=== PATIENT | female | born 1990 | race Caucasian/White ===

== ENCOUNTER 2017-10-10 16:02 | Inpatient (IN) ==
[2017-10-10 16:01] VITALS: BMI 32.2
[2017-10-10] MEDS ORDERED: NUBAIN INJ 200 MG VIAL MULTIDOSE IVP PRN (16:03)
[2017-10-10] MEDS ORDERED: D5LR 1L W PITOCIN 10 UNITS/L 10 UNITS/1,000 ML BAG IV PRN (16:03)
[2017-10-10] MEDS ORDERED: PHENERGAN INJ 25 MG IV PRN ×2 (16:03→19:46)
[2017-10-10] MEDS ORDERED: REGLAN INJ 10 MG VIAL IVP PRN (16:03)
[2017-10-10] MEDS ORDERED: PITOCIN IVP ONE (16:03)
[2017-10-10] MEDS ORDERED: D5 1/2 NS 1000 ML 1,000 ML IV SCH (16:03)
[2017-10-10] MEDS ORDERED: D5 1/2 NS 1000 ML 1,000 ML IV ONE (16:22)
[2017-10-10] MEDS ORDERED: D5LR 1L W PITOCIN 10 UNITS/L 10 UNITS/1,000 ML BAG IV ONE (16:37)
[2017-10-10] MEDS ORDERED: PITOCIN ONE (16:37)
[2017-10-10] MEDS ORDERED: D5 1/2 NS 1L W PITOCIN 20 UNITS/L 20 UNITS/1,000 ML BAG IV ONE (16:38)
[2017-10-10 16:43] LABS: AMNISURE ROM TEST THERE IS A RUPTURE (NO RUPTURE)
--- NOTE | 2017-10-10 16:50 | DR.OB ---
OB Quick Note - Assessment/Plan Assessment/Plan: L&D 10/10/17 at 4:45pm S-No complaint. O-Afebrile,VSS AUF=[id number] with good LTV, +accel, no decel. CTX=q 3-5 min., mild by palpation CVX=3cm/50%/-1/VTX SROM with clear fluid. IUPC and FSE placed. A-IUP at 39 6/7 weeks with SROM P-Begin pitocin augmentation Anticipate
[2017-10-10] MEDS ORDERED: LR 1000 ML IV 1,000 ML IV ONE (17:07)
[2017-10-10] MEDS ORDERED: FENTANYL INJ 100 mcg ONE (17:08)
[2017-10-10] MEDS ORDERED: XYLOCAINE 1 % (PLAIN) ONE (17:08)
[2017-10-10] MEDS ORDERED: NAROPIN EPIDURAL 0.2% + FENTANYL 90MCG 60 ML EPI ONE (17:09)
[2017-10-10] MEDS ORDERED: ADRENALINE CHL INJ ONE (17:11)
[2017-10-10] MEDS: D5 1/2 NS 1000 ML 1,000 ML with PITOCIN 20 UNITS IV SCH ×2 (19:35)
--- NOTE | 2017-10-10 19:45 | DR.OB ---
OB Quick Note - Assessment/Plan Assessment/Plan: Delivery Note [employer] 10/10/17 at 7:40pm Patient complete and pushing. Head delivered over intact perineum. Nuchal cord x 1 reduced. Nose and mouth bulb suctioned. Body delivered over intact perineum. Cord clamped x 2 and cut. Infant handed to attendant. Cord sent for gases. Placenta delivered spontaneously / intact / 3 vessel cord. No CVX / vaginal / perineal tears. Viable male infant, VTX/OA, wt=6'10" and 9/9 , stable to NBN. Mother stable to RR. [id number].
[2017-10-10] MEDS ORDERED: MOTRIN TAB 800 MG PO PRN (19:46)
[2017-10-10] MEDS ORDERED: MILK OF MAGNESIA PO PRN (20:31)
[2017-10-10] MEDS ORDERED: DERMOPLAST SPRAY TOP PRN (20:31)
[2017-10-10] MEDS ORDERED: AMBIEN PO PRN (20:31)
[2017-10-10] MEDS ORDERED: ADACEL or BOOSTRIX TDaP VACCINE IM ONE ×2 (20:31→22:52)
[2017-10-10] MEDS: ZANTAC PO SCH (22:00)
[2017-10-11 04:25] LABS: HEMATOCRIT 35.1 % (36.0-47.0); HEMOGLOBIN 12.5 g/dL (12.0-16.0)
[2017-10-11] MEDS: D5 1/2 NS 1000 ML 1,000 ML with PITOCIN 20 UNITS IV SCH ×6 (04:51→20:26)
[2017-10-11] MEDS: PRENATAL PLUS PO SCH (09:52)
[2017-10-11] MEDS: ZANTAC PO SCH ×2 (09:52→20:26)
[2017-10-12] MEDS: D5 1/2 NS 1000 ML 1,000 ML with PITOCIN 20 UNITS IV SCH ×2 (04:22)
[2017-10-12 09:10] VITALS: BP 137/92
[2017-10-12] MEDS: PRENATAL PLUS PO SCH (10:49)
[2017-10-12] MEDS: ZANTAC PO SCH (10:49)
== END 2017-10-12 11:15 | disposition home or self-care (01) | DRG 775 ==
LOC: ER 16:02 → LD 16:05 → MED/SURG 20:34
PROVIDERS: ADMIT Specialist; ATTEND Specialist
DX: Z23 Encounter for immunization; Z37.0 Single live birth; O80 Encounter for full-term uncomplicated delivery; Z3A.39 39 weeks gestation of pregnancy
CPT/HCPCS: 36415; 59409; 84112; 85014; 85018; 90715; A4216; A4222; S0197; J0171; J2590; J3010; J7120; S5010

== ENCOUNTER 2019-07-07 06:14 | Inpatient (IN) ==
[2019-07-07] MEDS ORDERED: D5LR 1L W PITOCIN 10 UNITS/L 10 UNITS/1,000 ML BAG IV ONE (06:21)
[2019-07-07] MEDS ORDERED: D5 1/2 NS 1000 ML 1,000 ML IV ONE (06:22)
[2019-07-07] MEDS ORDERED: PHENERGAN INJ 25 MG IM PRN ×3 (06:41→13:54)
[2019-07-07] MEDS ORDERED: NUBAIN INJ 200 MG VIAL MULTIDOSE IVP PRN (06:41)
[2019-07-07] MEDS ORDERED: REGLAN INJ 10 MG VIAL IVP PRN ×2 (06:41→13:54)
[2019-07-07] MEDS ORDERED: PITOCIN IVP ONE (06:41)
[2019-07-07] MEDS ORDERED: D5LR 1L W PITOCIN 10 UNITS/L 10 UNITS/1,000 ML BAG IV PRN (06:41)
[2019-07-07] MEDS ORDERED: D5 1/2 NS 1000 ML 1,000 ML IV SCH (06:41)
[2019-07-07] MEDS ORDERED: MORPHINE SULFATE INJ 2 MG INJ IVP PRN (06:41)
--- NOTE | 2019-07-07 07:06 | DR.OB ---
OB Quick Note - Assessment/Plan Assessment/Plan: L&D 07/07/19 at 7:00am S-No complaint. O-Afebrile,VSS [id number] with good LTV, +accel, no decel. CTX=occasional, mild. CVX=2-3cm/50%/-1/VTX AROM with clear fluid. IUPC and FSE placed. A-IUP at 39 0/7 weeks for induction P-Begin pitocin induction F/U labs Anticipate with PP BTL as desired.
[2019-07-07 07:12] LABS: BILIRUBIN,URINE NEGATIVE (NEGATIVE); BLOOD/HEMOGLOBIN,URINE NEGATIVE (NEGATIVE); GLUCOSE, URINE NEGATIVE (NEGATIVE); KETONES,URINE NEGATIVE (NEGATIVE); LEUKOCYTE ESTERASE ,URINE NEGATIVE (NEGATIVE); NITRITES,URINE NEGATIVE (NEGATIVE); PH,URINE 6.5 (5.0 - 8.0); PROTEIN,URINE NEGATIVE (NEGATIVE); UROBILINOGEN,URINE NORMAL (NORMAL)
[2019-07-07 07:22] LABS: BASOPHILS % (AUTO) 0.6 % (0.2-1.0); EOSINOPHILS # (AUTO) 0.1 x10^3/uL (0.0-0.2); EOSINOPHILS % (AUTO) 0.7 % (0.9-2.9); HEMATOCRIT 35.2 % (36.0-47.0); HEMOGLOBIN 12.2 g/dL (12.0-16.0); LYMPHOCYTES # (AUTO) 1.9 X10^3/uL (1.3-2.9); LYMPHOCYTES % (AUTO) 22.6 % (21.0-51.0); MEAN CORPUSCULAR HEMOGLOBIN 28.7 pg (27.0-34.0); MEAN CORPUSCULAR HGB CONC 34.7 g/dL (33.0-35.0); MEAN CORPUSCULAR VOLUME 82.8 fL (80.0-100.0); MEAN PLATELET VOLUME 10.2 fL (7.4-11.0); MONOCYTES # (AUTO) 0.5 x10^3/uL (0.3-0.8); MONOCYTES % (AUTO) 5.9 % (0.0-13.0); NEUTROPHILS % (AUTO) 70.2 % (42.0-75.0); PLATELET COUNT 222 X10^3/uL (150.0-450.0); RED BLOOD COUNT 4.25 X10^6/uL (3.5-5.4); RED CELL DISTRIBUTION WIDTH 13.2 % (11.6-16.5); WHITE BLOOD COUNT 8.5 X10^3/uL (3.6-10.0)
[2019-07-07 07:28] LABS: BLOOD UREA NITROGEN 8 mg/dL (7-18); CALCIUM 8.7 mg/dL (8.5-10.1); CARBON DIOXIDE 23.4 mmol/L (21-32); CHLORIDE 105 mmol/L (98-107); CREATININE 0.72 mg/dL (0.55-1.02); SODIUM 139 mmol/L (136-145); eGFR NON BLACK RACES > 60 (>60)
[2019-07-07 07:29] LABS: APPEARANCE,URINE CLEAR (CLEAR); COLOR,URINE YELLOW (YELLOW)
[2019-07-07] MEDS ORDERED: LR 1000 ML IV 1,000 ML IV ONE (08:17)
[2019-07-07] MEDS ORDERED: PITOCIN ONE (08:18)
[2019-07-07] MEDS ORDERED: NAROPIN EPIDURAL 0.2% + FENTANYL 90MCG 60 ML EPI ONE (08:18)
[2019-07-07] MEDS ORDERED: FENTANYL INJ 100 mcg ONE (08:18)
[2019-07-07] MEDS ORDERED: D5 1/2 NS 1L W PITOCIN 20 UNITS/L 20 UNITS/1,000 ML BAG IV ONE (08:19)
[2019-07-07] MEDS ORDERED: MOTRIN TAB 800 MG PO PRN (12:51)
--- NOTE | 2019-07-07 12:51 | DR.OB ---
OB Quick Note - Assessment/Plan Assessment/Plan: Delivery Note [employer] 07/07/19 at 12:35pm Patient complete and pushing. Head delivered over intact perineum. Nuchal cord x 1 reduced. Nose and mouth bulb suctioned. Body delivered over intact perineum. Cord clamped x 2 and cut. Infant handed to attendant. Cord sent for gases. Placenta delivered spontaneously / intact / 3 vessel cord. No CVX / vaginal / perineal tears. Viable female infant, VTX/OA, wt=7'0" and 9/9, stable to NBN. Mother stable to RR. RPQ=322hm.
[2019-07-07] MEDS ORDERED: ANCEF 1 GRAM IV PREMIX* 1 G/50 ML BAG IV ONE (12:59)
[2019-07-07] MEDS ORDERED: XYLOCAINE 2% and EPINEPHRINE 1:100,000 ONE (13:00)
[2019-07-07] MEDS ORDERED: BENADRYL INJ 50 MG VIAL IVP PRN (13:54)
[2019-07-07] MEDS ORDERED: ZOFRAN INJ 4 MG VIAL IVP PRN (13:54)
[2019-07-07] MEDS ORDERED: DILAUDID INJ IVP PRN (13:54)
[2019-07-07] MEDS ORDERED: DERMOPLAST PAIN RELIEF SPRAY TOP PRN (14:14)
[2019-07-07] MEDS ORDERED: MILK OF MAGNESIA PO PRN ×2 (14:14)
[2019-07-07] MEDS ORDERED: ADACEL or BOOSTRIX TDaP VACCINE IM ONE (14:14)
[2019-07-07] MEDS ORDERED: PERCOCET TAB 5/325 MG PO PRN (14:14)
[2019-07-07] MEDS ORDERED: AMBIEN PO PRN ×2 (14:14)
[2019-07-07] MEDS ORDERED: MYLICON TAB 80 MG CHEW PO PRN (14:14)
[2019-07-07] MEDS: D5 1/2 NS 1000 ML 1,000 ML with PITOCIN 20 UNITS IV SCH ×4 (14:25→20:43)
[2019-07-07] MEDS ORDERED: VERSED ONE (15:29)
[2019-07-07] MEDS ORDERED: DIPRIVAN VIAL ONE (15:29)
[2019-07-07] MEDS ORDERED: NS IRRIGATION* 500 ML IR ONE (15:30)
[2019-07-07] MEDS: MOTRIN TAB 800 MG PO PRN (16:53)
[2019-07-08 05:01] LABS: HEMATOCRIT 33.4 % (36.0-47.0); HEMOGLOBIN 11.4 g/dL (12.0-16.0)
[2019-07-08] MEDS: D5 1/2 NS 1000 ML 1,000 ML with PITOCIN 20 UNITS IV SCH ×2 (06:13)
[2019-07-08] MEDS: MOTRIN TAB 800 MG PO PRN (07:54)
[2019-07-08] MEDS: PROTONIX TAB 40 MG PO SCH ×2 (07:54→08:54)
[2019-07-08] MEDS: PRENATAL PLUS PO SCH ×2 (07:54→08:53)
[2019-07-08] MEDS ORDERED: BACTROBAN CREAM TOP SCH (08:00)
[2019-07-08 12:36] VITALS: BP 118/85
== END 2019-07-08 14:30 | disposition home or self-care (01) | DRG 798 ==
LOC: LD 06:14 → MED/SURG 14:24
PROVIDERS: ADMIT Specialist; ATTEND Specialist
DX: Z37.0 Single live birth; Z3A.39 39 weeks gestation of pregnancy; Z30.2 Encounter for sterilization; O99.613 Diseases of the digestive system complicating pregnancy, third trimester; Z23 Encounter for immunization